=== PATIENT | female | born 1950 | race Native Hawaiian/Other Pacific Islander ===

== ENCOUNTER 2017-04-13 10:58 | Outpatient (CLI) | payer OTHER | END 2017-04-13 22:40 | disposition home or self-care (01) | LOC: MAMMO 10:58 | DX: N63.21 Unspecified lump in the left breast, upper outer quadrant (principal) ==

== ENCOUNTER 2017-05-29 15:19 | Outpatient (CLI) | payer OTHER | END 2017-05-29 20:09 | disposition home or self-care (01) | LOC: MRI 15:19 | DX: E78.2 Mixed hyperlipidemia (principal) ==

== ENCOUNTER 2017-06-08 18:13 | Observation (INO) | payer OTHER ==
[~2017-06-08] VITALS: Ht 170.2 cm; Wt 81.8 kg
[2017-06-08 19:06] VITALS: BP 146/74; TEMP 97.7; Ht 170.2 cm; Wt 81.8 kg
[2017-06-08 19:45] VITALS: BP 126/73; TEMP 98.2
[2017-06-08 19:58] LABS: PLATELET COUNT 177 K/uL (152-353)
[2017-06-08 20:15] LABS: POTASSIUM 3.9 mmol/L (3.6-5.2)
[2017-06-08] MEDS ORDERED: INSUINJ32 SC (20:46)
--- NOTE | 2017-06-08 21:36 | NUR ---
06/08/172134: REPORT OF CT SCAN CALLED TO DR. PEREZ. AMMONIA LEVEL 25, DR PEREZ MADE AWARE NO ORDERS RECEIVED.
[2017-06-08] MEDS ORDERED: ASA LOW DOSE81 MG PO (23:49)
[2017-06-08] MEDS ORDERED: ESTR1TAB13 PO (23:50)
[2017-06-08] MEDS ORDERED: METOPROLOL25 M1 PO (23:51)
[2017-06-08] MEDS ORDERED: RAMI10CA PO (23:52)
[2017-06-08 23:53] VITALS: BP 161/68; TEMP 98.3
[2017-06-08] MEDS ORDERED: OMEPRAZOLE20 M1 PO (23:53)
[2017-06-08] MEDS ORDERED: INSUINJP SC (23:55)
[2017-06-08] MEDS ORDERED: DONE5TAB PO (23:55)
[2017-06-08] MEDS ORDERED: DIPH25CA90 PO (23:57)
[2017-06-08] MEDS ORDERED: FISH OIL1 C10 PO (23:58)
[2017-06-09 04:00] VITALS: BP 142/75; TEMP 98.4
[2017-06-09 08:00] VITALS: BP 163/72; TEMP 97
[2017-06-09 12:00] VITALS: BP 139/70; TEMP 97.7
[2017-06-09 15:56] LABS: PLATELET COUNT 154 K/uL (152-353)
[2017-06-09 16:08] LABS: POTASSIUM 3.8 mmol/L (3.6-5.2)
[2017-06-09 16:25] VITALS: BP 151/81; TEMP 98.3
--- NOTE | 2017-06-09 17:00 | NUR ---
22G TO THE RFA D/C AT THIS TIME WITH TIP INTACT. DISCHARGE INSTRUCTIONS WERE GIVEN TO PT AND FAMILY MEMBER AT BEDSIDE. PT VERBALIZED UNDERSTANDING. PT WAS D/C VIA WHEELCHAIR AT THIS TIME.
== END 2017-06-09 17:00 | disposition home or self-care (01) ==
LOC: MED/SURG 18:13
PROVIDERS: ADMIT Family Medicine
DX: R41.82 Altered mental status, unspecified (principal); E72.4 Disorders of ornithine metabolism; R73.9 Hyperglycemia, unspecified
CPT/HCPCS: 80048; 80053; 81000; 82140; 82150; 82948; 83690; 85027; 87040; 96365; 96366; 96372; 99220; G0378; G0379; J1815